=== PATIENT | male | born 1985 | race Caucasian/White ===

== ENCOUNTER 2019-07-13 14:54 | Emergency (ER) | payer OTHER ==
[2019-07-13 15:15] VITALS: BP 131/90; PULSE 85
[2019-07-13] MEDS ORDERED: Sodium Chloride 0.9% 10 ML Syringe FLUSH PRN (15:42)
[2019-07-13] MEDS ORDERED: Glucagon,Human Recombinant 1 MG Vial IVPUSH ONE (15:42)
[2019-07-13] MEDS ORDERED: LORazepam 2 MG/ML SDV IVPUSH ONE (15:43)
[2019-07-13] MEDS ORDERED: Lactated Ringers 1,000 ML IV SCH (15:45)
--- NOTE | 2019-07-13 16:33 | EDM.PDOC ---
ED HPI GENERAL MEDICAL PROBLEM - General Chief Complaint: ENT Problem Stated Complaint: FOOD STUCK IN ESOPHAGUS Time Seen by Provider: 07/13/19 15:19 Source of Information: Reports: Patient History Limitations: Reports: No Limitations - History of Present Illness INITIAL COMMENTS - FREE TEXT/NARRATIVE: The patient presents with chicken in his throat. The patient took a bite of chicken for lunch and it got stuck. He cannot pass anything including spit. This has never happened before and he has no reflux. He has no medical problems. Onset: Sudden Duration: Minutes: Location: Reports: Other (Throat) Quality: Reports: Other (uncomfortable) Severity: Mild Improves with: Reports: None Worsens with: Reports: None Associated Symptoms: Reports: No Other Symptoms - Related Data Allergies Allergy/AdvReac Type Severity Reaction Status Date / Time hay fever Allergy unknown Uncoded 07/13/19 15:15 Home Meds: Home Meds Loratadine [Claritin] 10 mg PO DAILY 07/13/19 [History] Past Medical History - Past Health History Medical/Surgical History: Denies Medical/Surgical History Immunologic History: Reports: Other (See Below) Social & Family History - Tobacco Use Smoking Status *Q: Never Smoker Second Hand Smoke Exposure: No - Caffeine Use Caffeine Use: Reports: Coffee - Recreational Drug Use Recreational Drug Use: No ED ROS ENT - Review of Systems Review Of Systems: See Below Constitutional: Reports: No Symptoms HEENT: Reports: No Symptoms Respiratory: Reports: No Symptoms Cardiovascular: Reports: No Symptoms Endocrine: Reports: No Symptoms GI/Abdominal: Reports: No Symptoms : Reports: No Symptoms Musculoskeletal: Reports: No Symptoms ED EXAM, ENT - Physical Exam Exam: See Below Exam Limited By: No Limitations General Appearance: Alert, No Apparent Distress Ears: Normal External Exam Nose: Normal Inspection Head: Atraumatic, Normocephalic Neck: Normal Inspection Respiratory/Chest: No Respiratory Distress, Lungs Clear, Normal Breath Sounds Cardiovascular: Regular Rate, Rhythm, No Edema, No Murmur GI/Abdominal: Soft, Non-Tender, No Organomegaly, No Mass Extremities: Normal Inspection Course - Vital Signs Last Recorded V/S: Last Vital Signs Temp 98.5 F 07/13/19 15:13 Pulse 85 07/13/19 15:13 Resp 16 07/13/19 15:13 BP 131/90 07/13/19 15:13 Pulse Ox 98 07/13/19 15:13 - Orders/Labs/Meds Orders: Active Orders 24 hr Category Date Time Status Peripheral IV Care [RC] . DIRECTED Care 07/13/19 15:42 Active Lactated Ringers [Ringers, Lactated] 1,000 ml Med 07/13/19 15:45 Active IV ASDIRECTED Sodium Chloride 0.9% [Saline Flush] Med 07/13/19 15:42 Active 10 ml FLUSH ASDIRECTED PRN Peripheral IV Insertion Adult [OM.PC] Routine Oth 07/13/19 15:42 Ordered Medication Orders Lactated Ringer's (Ringers, Lactated) 1,000 mls @ 100 mls/hr IV ASDIRECTED WILIAN Last Admin: 07/13/19 15:54 Dose: 100 mls/hr Sodium Chloride (Saline Flush) 10 ml FLUSH ASDIRECTED PRN PRN Reason: Keep Vein Open Last Admin: 07/13/19 15:54 Dose: 10 ml Meds: Medications Generic Name Dose Route Start Last Admin Trade Name Freq PRN Reason Stop Dose Admin Lactated Ringer's 1,000 mls @ 100 mls/hr 07/13/19 15:45 07/13/19 15:54 Ringers, Lactated IV 100 mls/hr ASDIRECTED WILIAN Administration Sodium Chloride 10 ml 07/13/19 15:42 07/13/19 15:54 Saline Flush FLUSH 10 ml ASDIRECTED PRN Administration Keep Vein Open Discontinued Medications Generic Name Dose Route Start Last Admin Trade Name Freq PRN Reason Stop Dose Admin Glucagon 1 mg 07/13/19 15:42 07/13/19 15:55 Glucagen IVPUSH 07/13/19 15:43 1 mg ONETIME ONE Administration Lorazepam 1 mg 07/13/19 15:43 07/13/19 15:54 Ativan IVPUSH 07/13/19 15:44 1 mg ONETIME ONE Administration - Re-Assessments/Exams Free Text/Narrative Re-Assessment/Exam: 07/13/19 16:30 I ordered an IV LR at 100ml/hr, glucagon 1mg IV, and ativan 1mg IV. He was able to vomit up the chicken. He can drink now and feels good. I will discharge him home on a soft diet and have him follow up with one of our providers. Departure - Departure Time of Disposition: 16:35 Disposition: Home, Self-Care 01 Condition: Good Clinical Impression: Impacted esophageal foreign body Qualifiers: Encounter type: initial encounter Qualified Code(s): T18.108A - Unspecified foreign body in esophagus causing other injury, initial encounter - Discharge Information *PRESCRIPTION DRUG MONITORING PROGRAM REVIEWED*: Not Applicable *COPY OF PRESCRIPTION DRUG MONITORING REPORT IN PATIENT KRISTAL: Not Applicable Referrals: PCP,None [Primary Care Provider] - Flora Mckeon, [employer] [Nurse Practitioner] - 1 Week Additional Instructions: Do a liquid diet for 24 hours and then a soft diet for 2 days and than advance as tolerated. Your esophagus may be swollen for a few days and the soft diet will help avoid another food impaction. Follow up with Flora Mckeon within a week. Please return if you are worse. Sepsis Event Note - Evaluation Sepsis Screening Result: No Definite Risk - Focused Exam Vital Signs: Vital Signs Temp Pulse Resp BP Pulse Ox 07/13/19 15:13 98.5 F 85 16 131/90 98 Date Exam was Performed: 07/13/19 Time Exam was Performed: 16:27 - My Orders Last 24 Hours: My Active Orders 07/13/19 15:42 Peripheral IV Care [RC] . DIRECTED Sodium Chloride 0.9% [Saline Flush] 10 ml FLUSH ASDIRECTED PRN Peripheral IV Insertion Adult [OM.PC] Routine 07/13/19 15:45 Lactated Ringers [Ringers, Lactated] 1,000 ml IV ASDIRECTED - Assessment/Plan Last 24 Hours: My Active Orders 07/13/19 15:42 Peripheral IV Care [RC] . DIRECTED Sodium Chloride 0.9% [Saline Flush] 10 ml FLUSH ASDIRECTED PRN Peripheral IV Insertion Adult [OM.PC] Routine 07/13/19 15:45 Lactated Ringers [Ringers, Lactated] 1,000 ml IV ASDIRECTED
== END 2019-07-13 16:45 | disposition home or self-care (01) ==
LOC: JD.ED 14:54
DX: T18.128A Food in esophagus causing other injury, initial encounter (principal); Z79.899 Other long term (current) drug therapy; Z91.09 Other allergy status, other than to drugs and biological substances
CPT/HCPCS: 96361; 96374; 96375; 99283; J1610; J2060; J7120; 99284

== ENCOUNTER 2024-11-02 04:42 | Emergency (ER) | payer OTHER ==
[2024-11-02 05:08] VITALS: BP 108/96; PULSE 74
[2024-11-02] MEDS ORDERED: Sodium Chloride 0.9% 10 ML Syringe FLUSH PRN (05:24)
[2024-11-02 05:39] LABS: ALBUMIN 3.9 g/dl (3.4-5.0); ANION GAP 16.4 (5-15); BILIRUBIN TOTAL 0.4 mg/dL (0.2-1.0); BUN/CREATININE RATIO 13.3 (14-18); CALCIUM 9.1 mg/dL (8.5-10.1); CREATININE 0.9 mg/dL (0.7-1.3); EST CRCL DRUG DOSING (CG) 108.01 mL/min; POTASSIUM,K 3.4 mEq/L (3.5-5.1); PROTEIN TOTAL,TP 7.7 g/dl (6.4-8.2)
[2024-11-02 05:42] LABS: BASOPHILS ABSOLUTE AUTO 0.1 K/mm3 (0.0-0.2); BASOPHILS PERCENT AUTO 0.5 % (0.0-1.0); EOSINOPHILS ABSOLUTE AUTO 0.4 K/mm3 (0.0-0.4); EOSINOPHILS PERCENT AUTO 3.7 % (0.0-6.0); HEMATOCRIT 42.5 % (42.0-52.0); HEMOGLOBIN 15.1 gm/dl (14.0-18.0); IMMATURE GRAN ABSOLUTE AUTO 0.04 K/mm3 (0.00-0.05); IMMATURE GRAN PERCENT AUTO 0.4 % (0.0-0.4); LYMPHOCYTES ABSOLUTE AUTO 3.3 K/mm3 (1.0-4.8); LYMPHOCYTES PERCENT AUTO 35.1 % (24.0-44.0); MEAN CORPUSCULAR HEMOGLOBIN 30.7 pg (28.0-32.0); MEAN CORPUSCULAR HGB CONC 35.5 g/dl (32.0-36.0); MEAN CORPUSCULAR VOLUME 86.4 fl (83.0-99.0); MEAN PLATELET VOLUME 9.3 fl (9.4-12.4); MONOCYTES ABSOLUTE AUTO 0.6 K/mm3 (0.0-0.8); MONOCYTES PERCENT AUTO 5.9 % (0.0-8.0); NEUTROPHILS ABSOLUTE AUTO 5.1 K/mm3 (1.8-7.7); NEUTROPHILS PERCENT AUTO 54.4 % (41.0-71.0); PLATELET COUNT,PLT 376 K/mm3 (150-400); RED BLOOD CELL COUNT 4.92 M/mm3 (4.52-5.90); WHITE BLOOD CELL COUNT,WBC 9.38 K/mm3 (3.9-11.3)
[2024-11-02] MEDS: Sodium Chloride 0.9% 45 ML IV SCH (05:50)
[2024-11-02] MEDS: Iopamidol 755 Mg/ML 100 ML Bottle IVPUSH ONE (05:50)
[2024-11-02] MEDS: Sodium Chloride 0.9% 10 ML Syringe FLUSH PRN (05:51)
[2024-11-02] MEDS: Sodium Chloride 0.9% 1,000 ML IV ONE (05:54)
[2024-11-02] MEDS: Alum Hydrox/Mag Hydrox/Simeth 30 ML, Lidocaine 2% 15 ML PO ONE (05:54)
[2024-11-02] MEDS: Famotidine 20 MG Tab PO ONE (05:55)
[2024-11-02] MEDS: Ondansetron 4 MG/2 ML SDV IVPUSH ONE (06:25)
[2024-11-02 06:32] LABS: APPEARANCE,URINE CLEAR (Clear); BILIRUBIN,URINE NEGATIVE (Negative); COLOR,URINE LIGHT YELLOW (Yellow); GLUCOSE,URINE NEGATIVE (Negative); KETONES,URINE NEGATIVE (Negative); LEUKOCYTE ESTERASE,URINE NEGATIVE (Negative); NITRITE,URINE NEGATIVE (Negative); OCCULT BLOOD,URINE TRACE-INTACT (Negative); PROTEIN,URINE NEGATIVE (Negative); UROBILINOGEN,URINE 0.2 (0.2-1.0)
[2024-11-02 06:51] LABS: BACTERIA,URINE RARE /hpf (FEW); MUCUS,URINE RARE /hpf (FEW); RBC,URINE 0-5 /hpf (0-5); SQUAMOUS EPITHELIAL CELLS,UR 0-5 /hpf (0-5); WBC,URINE 0-5 /hpf (0-5)
== END 2024-11-02 08:55 | disposition home or self-care (01) ==
LOC: JD.ED 04:42
DX: R91.1 Solitary pulmonary nodule (principal); R10.10 Upper abdominal pain, unspecified; Z87.891 Personal history of nicotine dependence; Z86.79 Personal history of other diseases of the circulatory system; Z87.19 Personal history of other diseases of the digestive system; Z88.8 Allergy status to other drugs, medicaments and biological substances; Z79.899 Other long term (current) drug therapy
CPT/HCPCS: 36415; 71275; 72191; 74175; 80053; 81001; 83690; 84484; 85025; 93005; 96361; 96374; 99285; A9270; J2405; J7030; Q9967